=== PATIENT | female | born 1975 | race Caucasian/White ===

== ENCOUNTER → 2017-06-24 | Outpatient (CLI) | payer OTHER ==
[~2017-06-24] MED LIST: AMOXICILLIN500 MG PO; IBUPROFEN1 CRY; NEURONTIN100 MG; TRAMADOL50 MG; TYLENOL W/CODEI1 TA2 PO
== END | disposition home or self-care (01) ==
LOC: US 06-20 10:30
DX: R10.11 Right upper quadrant pain (principal); R07.89 Other chest pain; R06.02 Shortness of breath; R09.81 Nasal congestion; R05 Cough

== ENCOUNTER 2019-09-01 08:24 | Emergency (ER) | payer OTHER ==
[~2019-09-01] VITALS: Ht 170.1 cm; Wt 61.2 kg
[2019-09-01] MEDS ORDERED: Motrin,Rufen800 MG PO (11:02)
== END 2019-09-01 11:20 | disposition home or self-care (01) ==
LOC: ED 08:24
DX: M26.602 Left temporomandibular joint disorder, unspecified (principal)

== ENCOUNTER 2019-09-11 14:02 | Emergency (ER) | payer OTHER ==
[~2019-09-11] VITALS: Ht 170.1 cm; Wt 61.2 kg
[~2019-09-11 14:02] MED LIST changes: +Motrin,Rufen800 MG PO
== END 2019-09-11 16:05 | disposition home or self-care (01) ==
LOC: ED 14:02
DX: S09.90XA Unspecified injury of head, initial encounter (principal); Z79.899 Other long term (current) drug therapy; W20.8XXA Other cause of strike by thrown, projected or falling object, initial encounter; Y93.89 Activity, other specified; Y92.89 Other specified places as the place of occurrence of the external cause; Y99.8 Other external cause status